=== PATIENT | female | born 1960 | race Caucasian/White ===

== ENCOUNTER 2020-08-10 17:03 | Inpatient (IN) | payer OTHER ==
[~2020-08-10] VITALS: Ht 182.9 cm; Wt 106.5 kg
--- NOTE | 2020-08-10 17:14 | NUR ---
MATTHEW REMSA FROM HOME FOR DIFFUSE BACK PAIN DESCRIBED DULL ACHING. THIS STATRED A T 5 AM THIS MORNING. THROUGHOUT THE DAY PT EXPERIENCED 2 EPISODES OF VOMITING AND FOLLOWED BY A SYNCOPAL EPISODE BY WHICH SHE WAS ASSISTED TO THE GROUND BY . PER EMS UNABLE TO OBTAIN BP ON SCENE. BP POST 1 LITER NS WAS 67/52. PT MEDICAL HX OF HTN
[2020-08-10] MEDS ORDERED: ONDANSETRON 2MG/ML, 2ML ONE (17:27)
[2020-08-10] MEDS ORDERED: PLEASE ENTER HEIGHT AND WEIGHT MC SCH (17:30)
[2020-08-10] MEDS ORDERED: ONDANSETRON 2MG/ML, 2ML IVPush ONE (17:30)
[2020-08-10] MEDS ORDERED: SODIUM CHLORIDE 0.9% 1,000ML IVBOLUS ONE ×3 (17:30→20:00)
[2020-08-10] MEDS ORDERED: FENTANYL PF 100 MCG/2ML IVPush ONE ×2 (17:30→19:30)
[2020-08-10] MEDS ORDERED: SODIUM CHLORIDE FLUSH 10ML SYR IVF ONE (17:30)
[2020-08-10 17:51] LABS: INTERNATIONAL NORMALIZED RATIO 1.05 (0.93-1.1); PROTHROMBIN TIME 10.8 Seconds (9.6-11.5)
--- NOTE | 2020-08-10 17:51 | NUR ---
LAST ORAL INTAKE OF FOOD WAS YESTERDAY NOONISH.
--- NOTE | 2020-08-10 17:52 | NUR ---
PHARMACY NOTIFIED OF LEVOPHED ORDER. CENTRAL LINE CART AT BEDSIDE. MD AWARE OF PT CONDITION.
[2020-08-10 17:54] LABS: ALBUMIN 2.8 g/dL (3.4-5.0); ANION GAP 14 mmol/L (5-15); CALCIUM 8.1 mg/dL (8.5-10.1); CHLORIDE 107 mmol/L (98-107)
[2020-08-10 17:56] LABS: MEAN CORPUSCULAR HEMOGLOBIN 33.2 pg (27.0-34.8); MEAN CORPUSCULAR HGB CONC 32.6 g/dL (32.4-35.8); MEAN PLATELET VOLUME 8.4 fL (7.4-10.4); PLATELET COUNT 309 x10^3/uL (130-400); RED BLOOD COUNT 4.97 x10^6/uL (3.82-5.3)
[2020-08-10] MEDS ORDERED: FENTANYL PF 100 MCG/2ML ONE ×2 (17:57→19:10)
[2020-08-10] MEDS ORDERED: NOREPINEPHRINE 8 MG in SODIUM CHLORIDE 0.9% 242 ML IV PRN ×2 (18:00→20:30)
[2020-08-10 18:07] LABS: ALANINE AMINOTRANSFERASE 20 U/L (12-78); ALKALINE PHOSPHATASE 80 U/L (45-117); BILIRUBIN,TOTAL 0.5 mg/dL (0.2-1.0); CREATININE 1.63 mg/dL (0.55-1.02)
[2020-08-10] MEDS ORDERED: PIPERACILLIN/TAZO/PMX 3.375GM 50 ML ONE (18:23)
[2020-08-10 18:28] LABS: MD YES
[2020-08-10] MEDS ORDERED: METRONIDAZOLE PMX 500MG/100ML 100 ML IV ONE (18:30)
[2020-08-10] MEDS ORDERED: PIPERACILLIN/TAZO/PMX 3.375GM 50 ML IV ONE (18:30)
[2020-08-10 18:31] LABS: MICROSCOPIC INDICATED
[2020-08-10 18:31] LABS: BAND#(MANUAL) 2.91 x10^3/uL; BANDS%(MANUAL) 14 % (0-7); LYMPH#(MANUAL) 1.04 x10^3/uL (1-3.4); LYMPHS% (MANUAL) 5 % (22-44); METAMYELOCYTES# (MANUAL) 0.21 x10^3/uL (0-0); METAMYELOCYTES% (MANUAL) 1 % (0-1); MONOS#(MANUAL) 0.83 x10^3/uL (0.3-2.7); MONOS% (MANUAL) 4 % (2-9); SEG#(MANUAL) 15.81 x10^3/uL (1.8-6.8); SEGS% (MANUAL) 76 % (42-75)
[2020-08-10 18:32] LABS: <PLATELET ESTIMATE> ADEQUATE; <PLT MORPHOLOGY> NORMAL PLT MORPH
[2020-08-10] MEDS ORDERED: METRONIDAZOLE PMX 500MG/100ML 100 ML ONE (18:48)
--- NOTE | 2020-08-10 18:55 | NUR ---
levophed initiated at 0.1 per protocol. unable to chart in iv spread sheet.
--- NOTE | 2020-08-10 18:58 | NUR ---
MD MADE AWARE OF LATEST BP. PER MD INITIATE LEVOPHED NOW.
--- NOTE | 2020-08-10 19:01 | NUR ---
INCREASE O2 TO 4 LPM VIA NC FOR O2 SAT OF 88 ON 2LPM
--- NOTE | 2020-08-10 19:25 | NUR ---
md at bedside to perform central line
--- NOTE | 2020-08-10 19:28 | NUR ---
levophed moved to 0.12 per md prior to fentanyl admin.
[2020-08-10] MEDS ORDERED: LIDOCAINE-MPF 2% ,5ML ONE (19:49)
[2020-08-10] MEDS ORDERED: LIDOCAINE-MPF 2%, 2ML INFIL ONE (20:00)
--- NOTE | 2020-08-10 20:12 | NUR ---
surgeon at bedside. pt consented. unable to place ng tube due to pt anatomy. aware.
--- NOTE | 2020-08-10 20:24 | NUR ---
report to mary ann davila in [place].
[2020-08-10] MEDS ORDERED: ONDANSETRON 2MG/ML, 2ML IVPush PRN (20:30)
[2020-08-10] MEDS ORDERED: PHARMACY MAY ADJ FOR RENAL FX MC PRN (20:30)
[2020-08-10] MEDS ORDERED: MIDAZOLAM 1 MG/ML, 2ML ONE (20:41)
[2020-08-10] MEDS ORDERED: FENTANYL PF 250 MCG/5ML ONE (20:41)
[2020-08-10] MEDS ORDERED: ROCURONIUM 10 MG/ML,10ML ONE (21:00)
[2020-08-10] MEDS ORDERED: DEXAMETHASONE 4 MG/ML, 1ML ONE (21:00)
[2020-08-10] MEDS ORDERED: FAMOTIDINE 20 MG/2 ML IVPush SCH (21:00)
[2020-08-10] MEDS ORDERED: PROPOFOL 100 ML IV ONE (21:50)
[2020-08-10] MEDS ORDERED: GLUCAGON 1 MG IM PRN (22:00)
[2020-08-10] MEDS ORDERED: ONDANSETRON 2MG/ML, 2ML IV PRN (22:00)
[2020-08-10] MEDS ORDERED: VANCOMYCIN PER PHARMACY MC PRN (22:00)
[2020-08-10] MEDS ORDERED: THIAMINE 200 MG in SODIUM CHLORIDE 0.9% 50 ML IV ONE (22:00)
[2020-08-10] MEDS ORDERED: VASOPRESSIN 20 UNIT in SODIUM CHLORIDE 0.9% 99 ML IV PRN (22:00)
[2020-08-10] MEDS ORDERED: DEXTROSE 4 GM TAB.CHEW PO PRN (22:00)
[2020-08-10] MEDS ORDERED: SENNA/DOCUSATE TABLET NG PRN (22:00)
[2020-08-10] MEDS ORDERED: PHARMACY MAY ADJ FOR RENAL FX MC SCH (22:00)
[2020-08-10] MEDS ORDERED: LIDOCAINE-MPF 1%, 2ML ENDO PRN (22:00)
[2020-08-10] MEDS ORDERED: DEXTROSE 50%, 50ML SYRINGE IVPush PRN (22:00)
[2020-08-10 22:28] LABS: MEAN CORPUSCULAR HEMOGLOBIN 32.8 pg (27.0-34.8); MEAN PLATELET VOLUME 7.9 fL (7.4-10.4); PLATELET COUNT 285 x10^3/uL (130-400); RED BLOOD COUNT 4.38 x10^6/uL (3.82-5.3); RED CELL DISTRIBUTION WIDTH 12.9 % (9.6-15.2)
[2020-08-10] MEDS ORDERED: PHARMACOKINETIC CONSULTATION MC ONE (22:30)
[2020-08-10] MEDS ORDERED: PHARMACOKINETIC MONITORING MC PRN (22:30)
[2020-08-10 22:37] LABS: ANION GAP 5 mmol/L (5-15); CALCIUM 6.4 mg/dL (8.5-10.1); CHLORIDE 118 mmol/L (98-107); TRIGLYCERIDES 75 mg/dL (50-200)
[2020-08-10] MEDS ORDERED: VANCOMYCIN 2,400 MG in SODIUM CHLORIDE 0.9% 500 ML IV ONE (22:45)
[2020-08-10] MEDS: PROPOFOL 100 ML IV PRN (23:01)
[2020-08-10] MEDS ORDERED: OMNIPAQUE 350 MG/ML, 100ML BOTTLE ONE (23:23)
[2020-08-10] MEDS: SODIUM CHLORIDE FLUSH 10ML SYR IVF SCH (23:31)
[2020-08-10] MEDS ORDERED: SODIUM BICARB 8.4%, 50ML SYRINGE ONE (23:43)
[2020-08-10] MEDS: FENTANYL PF 1,000 MCG in SODIUM CHLORIDE 0.9% 80 ML IV PRN (23:57)
[2020-08-10] MEDS: NOREPINEPHRINE 8 MG in SODIUM CHLORIDE 0.9% 242 ML IV PRN (23:58)
[2020-08-11] LABS: MD YES
[2020-08-11] MEDS ORDERED: SODIUM BICARB 8.4%, 50ML SYRINGE IVPush ONE
[2020-08-11 00:02] LABS: BAND#(MANUAL) 6.62 x10^3/uL; BANDS%(MANUAL) 23 % (0-7); LYMPH#(MANUAL) 2.02 x10^3/uL (1-3.4); LYMPHS% (MANUAL) 7 % (22-44); METAMYELOCYTES# (MANUAL) 0.58 x10^3/uL (0-0); METAMYELOCYTES% (MANUAL) 2 % (0-1); MONOS#(MANUAL) 1.73 x10^3/uL (0.3-2.7); MONOS% (MANUAL) 6 % (2-9); MYELOCYTES# (MANUAL) 0.29 x10^3/uL (0-0); MYELOCYTES% (MANUAL) 1 % (0-0); SEG#(MANUAL) 17.57 x10^3/uL (1.8-6.8); SEGS% (MANUAL) 61 % (42-75)
[2020-08-11 00:04] LABS: <PLATELET ESTIMATE> ADEQUATE; <PLT MORPHOLOGY> NORMAL PLT MORPH
[2020-08-11] MEDS: PIPERACILLIN/TAZO/PMX 2.25GM 50 ML IVPB SCH ×4 (02:16→19:38)
[2020-08-11 04:00] VITALS: BP 100/66
[2020-08-11] MEDS: NOREPINEPHRINE 8 MG in SODIUM CHLORIDE 0.9% 242 ML IV PRN ×4 (04:01→22:07)
[2020-08-11] MEDS ORDERED: ACETAMINOPHEN 650 MG SUPP PR PRN (04:30)
[2020-08-11 05:26] LABS: INTERNATIONAL NORMALIZED RATIO 1.04 (0.93-1.1); PROTHROMBIN TIME 10.7 Seconds (9.6-11.5)
[2020-08-11 05:30] LABS: MEAN CORPUSCULAR HEMOGLOBIN 32.7 pg (27.0-34.8); MEAN CORPUSCULAR HGB CONC 32.9 g/dL (32.4-35.8); MEAN PLATELET VOLUME 8.6 fL (7.4-10.4); PLATELET COUNT 290 x10^3/uL (130-400); RED BLOOD COUNT 4.69 x10^6/uL (3.82-5.3); RED CELL DISTRIBUTION WIDTH 13.2 % (9.6-15.2)
[2020-08-11 05:34] LABS: ALBUMIN 2.4 g/dL (3.4-5.0); ANION GAP 8 mmol/L (5-15); CALCIUM 6.9 mg/dL (8.5-10.1); CHLORIDE 115 mmol/L (98-107)
[2020-08-11 05:38] LABS: ALANINE AMINOTRANSFERASE 21 U/L (12-78); ALKALINE PHOSPHATASE 64 U/L (45-117); BILIRUBIN,TOTAL 0.6 mg/dL (0.2-1.0); CREATININE 1.48 mg/dL (0.55-1.02); TOTAL PROTEIN 5.4 g/dL (6.4-8.2)
[2020-08-11 06:30] LABS: MD YES
[2020-08-11 06:32] LABS: BAND#(MANUAL) 3.04 x10^3/uL; BANDS%(MANUAL) 9 % (0-7); LYMPH#(MANUAL) 1.35 x10^3/uL (1-3.4); LYMPHS% (MANUAL) 4 % (22-44); METAMYELOCYTES# (MANUAL) 1.01 x10^3/uL (0-0); METAMYELOCYTES% (MANUAL) 3 % (0-1); MONOS#(MANUAL) 1.35 x10^3/uL (0.3-2.7); MONOS% (MANUAL) 4 % (2-9); SEG#(MANUAL) 27.04 x10^3/uL (1.8-6.8); SEGS% (MANUAL) 80 % (42-75)
[2020-08-11 06:34] LABS: <PLATELET ESTIMATE> ADEQUATE; <PLT MORPHOLOGY> NORMAL PLT MORPH
[2020-08-11] MEDS ORDERED: LACTATED RINGERS 1,000 ML IV ONE (09:00)
[2020-08-11] MEDS: SODIUM CHLORIDE FLUSH 10ML SYR IVF SCH ×2 (09:31→22:22)
[2020-08-11] MEDS: PANTOPRAZOLE 40 MG IV IV SCH (09:31)
[2020-08-11] MEDS: FENTANYL PF 1,000 MCG in SODIUM CHLORIDE 0.9% 80 ML IV PRN ×2 (11:55→19:52)
[2020-08-11] MEDS: PROPOFOL 100 ML IV PRN (19:37)
[2020-08-12] MEDS: PIPERACILLIN/TAZO/PMX 2.25GM 50 ML IVPB SCH ×4 (01:55→19:59)
[2020-08-12] MEDS: PROPOFOL 100 ML IV PRN ×4 (03:59→22:25)
[2020-08-12 04:00] VITALS: BP 115/71
[2020-08-12] MEDS: FENTANYL PF 1,000 MCG in SODIUM CHLORIDE 0.9% 80 ML IV PRN ×3 (04:06→18:26)
[2020-08-12 04:35] LABS: MEAN CORPUSCULAR HEMOGLOBIN 33.1 pg (27.0-34.8); MEAN CORPUSCULAR HGB CONC 32.9 g/dL (32.4-35.8); MEAN PLATELET VOLUME 8.4 fL (7.4-10.4); PLATELET COUNT 246 x10^3/uL (130-400); RED BLOOD COUNT 4.01 x10^6/uL (3.82-5.3); RED CELL DISTRIBUTION WIDTH 13.1 % (9.6-15.2)
[2020-08-12 04:41] LABS: ANION GAP 3 mmol/L (5-15); CALCIUM 7.7 mg/dL (8.5-10.1); CHLORIDE 115 mmol/L (98-107); CREATININE 0.99 mg/dL (0.55-1.02)
[2020-08-12] MEDS: NOREPINEPHRINE 8 MG in SODIUM CHLORIDE 0.9% 242 ML IV PRN ×3 (05:12→21:28)
[2020-08-12 06:10] LABS: MD YES
[2020-08-12 06:11] LABS: BAND#(MANUAL) 0.22 x10^3/uL; BANDS%(MANUAL) 1 % (0-7); LYMPH#(MANUAL) 1.54 x10^3/uL (1-3.4); LYMPHS% (MANUAL) 7 % (22-44); MONOS#(MANUAL) 2.42 x10^3/uL (0.3-2.7); MONOS% (MANUAL) 11 % (2-9); SEG#(MANUAL) 17.82 x10^3/uL (1.8-6.8); SEGS% (MANUAL) 81 % (42-75)
[2020-08-12 06:12] LABS: <PLATELET ESTIMATE> ADEQUATE; <PLT MORPHOLOGY> NORMAL PLT MORPH
[2020-08-12] MEDS: PANTOPRAZOLE 40 MG IV IV SCH (08:35)
[2020-08-12] MEDS: SODIUM CHLORIDE FLUSH 10ML SYR IVF SCH ×2 (08:35→20:00)
[2020-08-12] MEDS: VANCOMYCIN 2,000 MG in SODIUM CHLORIDE 0.9% 500 ML IV SCH (09:44)
[2020-08-13] MEDS: PIPERACILLIN/TAZO/PMX 2.25GM 50 ML IVPB SCH (02:38)
[2020-08-13] MEDS: FENTANYL PF 1,000 MCG in SODIUM CHLORIDE 0.9% 80 ML IV PRN ×2 (03:43→12:25)
[2020-08-13 03:45] LABS: BASOPHILS % (AUTO) 0 % (0-1); EOSINOPHILS % (AUTO) 1 % (1-7); LYMPHOCYTES % (AUTO) 14 % (22-44); MEAN CORPUSCULAR HEMOGLOBIN 33.8 pg (27.0-34.8); MEAN CORPUSCULAR HGB CONC 33.8 g/dL (32.4-35.8); MEAN PLATELET VOLUME 7.8 fL (7.4-10.4); MONOCYTES % (AUTO) 8 % (2-9); NEUTROPHILS % (AUTO) 77 % (42-75); PLATELET COUNT 208 x10^3/uL (130-400); RED BLOOD COUNT 3.31 x10^6/uL (3.82-5.3); RED CELL DISTRIBUTION WIDTH 13.3 % (9.6-15.2)
[2020-08-13 03:50] LABS: MD NO
[2020-08-13 03:54] LABS: ANION GAP 3 mmol/L (5-15); CALCIUM 8.1 mg/dL (8.5-10.1); CHLORIDE 115 mmol/L (98-107); CREATININE 0.55 mg/dL (0.55-1.02)
[2020-08-13 03:55] LABS: TRIGLYCERIDES 95 mg/dL (50-200)
[2020-08-13 04:00] VITALS: BP 98/52
[2020-08-13] MEDS: PROPOFOL 100 ML IV PRN ×2 (05:37→15:16)
[2020-08-13] MEDS ORDERED: POTASSIUM PHOSPHATE 22 MEQ in SODIUM CHLORIDE 0.9% 500 ML IV ONE ×2 (06:30→10:00)
[2020-08-13] MEDS: SODIUM CHLORIDE FLUSH 10ML SYR IVF SCH ×2 (08:22→20:51)
[2020-08-13] MEDS: PANTOPRAZOLE 40 MG IV IV SCH (08:22)
[2020-08-13] MEDS: PIPERACILLIN/TAZO/PMX 3.375GM 50 ML IV SCH ×3 (08:48→20:49)
[2020-08-13] MEDS: VANCOMYCIN 2,000 MG in SODIUM CHLORIDE 0.9% 500 ML IV SCH (08:48)
[2020-08-13] MEDS ORDERED: ROCURONIUM 10MG/ML,5ML ONE (16:43)
[2020-08-13] MEDS ORDERED: MIDAZOLAM 1 MG/ML, 2ML ONE (16:43)
[2020-08-13] MEDS ORDERED: FENTANYL PF 250 MCG/5ML ONE (17:33)
[2020-08-13] MEDS ORDERED: ONDANSETRON 2MG/ML, 2ML ONE (17:38)
[2020-08-13] MEDS ORDERED: SUGAMMADEX 200 MG/2 ML IVPush ONE (17:38)
[2020-08-13] MEDS ORDERED: KETOROLAC 30 MG/1 ML ONE (17:39)
[2020-08-13] MEDS ORDERED: DEXAMETHASONE 4 MG/ML, 1ML ONE ×2 (17:39)
[2020-08-13] MEDS ORDERED: PROPOFOL 10 MG/ML, 20ML ONE (17:39)
[2020-08-13] MEDS ORDERED: MEPERIDINE/PF 25MG/0.5ML IVPush PRN (18:00)
[2020-08-13] MEDS ORDERED: LABETALOL 5MG/ML, 20ML IV PRN (18:00)
[2020-08-13] MEDS ORDERED: EPHEDRINE 50 MG/ML, 1ML IVPush PRN (18:00)
[2020-08-13] MEDS ORDERED: PROMETHAZINE 25 MG/ML, 1ML IVPush PRN (18:00)
[2020-08-13] MEDS ORDERED: HYDROmorphone 1 MG/ML, 1ML INJ IVPush PRN (18:00)
[2020-08-13] MEDS ORDERED: OXYcodone 5 MG/5 ML ORAL.SOL UDC PO PRN (18:00)
[2020-08-13] MEDS ORDERED: ONDANSETRON 2MG/ML, 2ML IVPush PRN (18:00)
[2020-08-13] MEDS ORDERED: hydrALAzine 20 MG/ML, 1ML IV PRN (18:00)
[2020-08-13] MEDS ORDERED: FENTANYL PF 100 MCG/2ML IV PRN (18:00)
[2020-08-13] MEDS ORDERED: ACETAMINOPHEN 325 MG TABLET PO PRN (18:00)
[2020-08-13] MEDS: morphine SULFATE 10 MG/ML, 1ML IVPush PRN (20:54)
[2020-08-14] MEDS: PIPERACILLIN/TAZO/PMX 3.375GM 50 ML IV SCH ×4 (03:19→21:17)
[2020-08-14 04:00] VITALS: BP 100/58
[2020-08-14 05:56] LABS: BASOPHILS % (AUTO) 0 % (0-1); EOSINOPHILS % (AUTO) 0 % (1-7); LYMPHOCYTES % (AUTO) 6 % (22-44); MEAN CORPUSCULAR HEMOGLOBIN 33.4 pg (27.0-34.8); MEAN CORPUSCULAR HGB CONC 33.2 g/dL (32.4-35.8); MEAN PLATELET VOLUME 7.8 fL (7.4-10.4); MONOCYTES % (AUTO) 5 % (2-9); NEUTROPHILS % (AUTO) 89 % (42-75); PLATELET COUNT 194 x10^3/uL (130-400); RED BLOOD COUNT 2.86 x10^6/uL (3.82-5.3); RED CELL DISTRIBUTION WIDTH 12.9 % (9.6-15.2)
[2020-08-14 06:09] LABS: ANION GAP 7 mmol/L (5-15); CALCIUM 8.1 mg/dL (8.5-10.1); CHLORIDE 115 mmol/L (98-107)
[2020-08-14 06:12] LABS: CREATININE 0.64 mg/dL (0.55-1.02)
[2020-08-14 06:24] LABS: MD NO
[2020-08-14] MEDS: PANTOPRAZOLE 40 MG IV IV SCH (08:36)
[2020-08-14] MEDS: morphine SULFATE 10 MG/ML, 1ML IVPush PRN (08:38)
[2020-08-14] MEDS: D5%-0.45% NACL 1,000 ML IV SCH ×2 (08:38→21:20)
[2020-08-14] MEDS: SODIUM CHLORIDE FLUSH 10ML SYR IVF SCH ×2 (08:38→21:00)
[2020-08-14 08:50] VITALS: BP 120/74
[2020-08-14 11:40] VITALS: BP 103/53
[2020-08-14] MEDS: ACETAMINOPHEN 325 MG TABLET PO PRN ×2 (14:27→23:25)
[2020-08-14 16:46] VITALS: BP 105/60
[2020-08-14 21:33] VITALS: BP 106/67
[2020-08-15 00:09] VITALS: BP 112/73
[2020-08-15 01:37] VITALS: BP 144/77
[2020-08-15] MEDS: morphine SULFATE 10 MG/ML, 1ML IVPush PRN (01:55)
[2020-08-15] MEDS: PIPERACILLIN/TAZO/PMX 3.375GM 50 ML IV SCH ×4 (02:53→20:27)
[2020-08-15 05:17] LABS: ANION GAP 6 mmol/L (5-15); CALCIUM 7.8 mg/dL (8.5-10.1); CHLORIDE 112 mmol/L (98-107); CREATININE 0.59 mg/dL (0.55-1.02)
[2020-08-15 05:23] LABS: BASOPHILS % (AUTO) 1 % (0-1); EOSINOPHILS % (AUTO) 1 % (1-7); LYMPHOCYTES % (AUTO) 17 % (22-44); MEAN CORPUSCULAR HEMOGLOBIN 33.5 pg (27.0-34.8); MEAN CORPUSCULAR HGB CONC 33.8 g/dL (32.4-35.8); MEAN PLATELET VOLUME 7.7 fL (7.4-10.4); MONOCYTES % (AUTO) 11 % (2-9); NEUTROPHILS % (AUTO) 71 % (42-75); PLATELET COUNT 224 x10^3/uL (130-400); RED BLOOD COUNT 2.75 x10^6/uL (3.82-5.3); RED CELL DISTRIBUTION WIDTH 13.2 % (9.6-15.2)
[2020-08-15 05:34] LABS: MD NO
[2020-08-15 07:54] VITALS: BP 109/72
[2020-08-15] MEDS: PANTOPRAZOLE 40 MG IV IV SCH (09:02)
[2020-08-15] MEDS: SODIUM CHLORIDE FLUSH 10ML SYR IVF SCH ×2 (09:03→19:53)
[2020-08-15] MEDS: D5%-0.45% NACL 1,000 ML IV SCH (11:57)
[2020-08-15 13:29] VITALS: BP 130/81
[2020-08-15] MEDS: ACETAMINOPHEN 325 MG TABLET PO PRN ×2 (15:18→19:52)
[2020-08-15 19:57] VITALS: BP 118/76
[2020-08-16] MEDS: D5%-0.45% NACL 1,000 ML IV SCH (00:05)
[2020-08-16 01:25] VITALS: BP 119/75
[2020-08-16] MEDS: PIPERACILLIN/TAZO/PMX 3.375GM 50 ML IV SCH ×2 (02:40→07:58)
[2020-08-16 05:06] LABS: BASOPHILS % (AUTO) 0 % (0-1); EOSINOPHILS % (AUTO) 2 % (1-7); LYMPHOCYTES % (AUTO) 15 % (22-44); MEAN CORPUSCULAR HEMOGLOBIN 33.4 pg (27.0-34.8); MEAN CORPUSCULAR HGB CONC 33.2 g/dL (32.4-35.8); MEAN PLATELET VOLUME 7.6 fL (7.4-10.4); MONOCYTES % (AUTO) 12 % (2-9); NEUTROPHILS % (AUTO) 71 % (42-75); PLATELET COUNT 254 x10^3/uL (130-400); RED BLOOD COUNT 2.76 x10^6/uL (3.82-5.3)
[2020-08-16 05:11] LABS: ANION GAP 6 mmol/L (5-15); CHLORIDE 111 mmol/L (98-107); CREATININE 0.52 mg/dL (0.55-1.02)
[2020-08-16 05:16] LABS: MD NO
[2020-08-16] MEDS ORDERED: PANTOPRAZOLE 40MG TABLET PO SCH (06:00)
[2020-08-16 06:43] VITALS: BP 125/80
[2020-08-16] MEDS: SODIUM CHLORIDE FLUSH 10ML SYR IVF SCH (07:58)
[2020-08-16] MEDS ORDERED: POTASSIUM CHLORIDE 20 MEQ TAB.ER.PRT PO ONE (08:00)
[2020-08-16] MEDS: ACETAMINOPHEN 325 MG TABLET PO PRN (08:06)
[2020-08-16] MEDS ORDERED: CIPR500T87 PO (10:24)
[2020-08-16] MEDS ORDERED: METR500T PO (10:24)
[2020-08-16] MEDS ORDERED: LISI5TAB7 PO (10:24)
[2020-08-16 12:20] VITALS: BP 117/77
== END 2020-08-16 13:40 | disposition home or self-care (01) | DRG 853 ==
LOC: ED 19:54 → EDIP 20:11 → CCU 21:46 → 3N 08-14 17:47
PROVIDERS: ADMIT Family Medicine; ATTEND Internal Medicine
PROC: 0DB80ZZ Excision of Small Intestine, Open Approach (ICD-10-PCS; 2020-08-10)
PROC: 0BH17EZ Insertion of Endotracheal Airway into Trachea, Via Natural or Artificial Opening (ICD-10-PCS; 2020-08-10)
PROC: 0T9B70Z Drainage of Bladder with Drainage Device, Via Natural or Artificial Opening (ICD-10-PCS; 2020-08-10)
PROC: 02HV33Z Insertion of Infusion Device into Superior Vena Cava, Percutaneous Approach (ICD-10-PCS; 2020-08-10)
PROC: B548ZZA Ultrasonography of Superior Vena Cava, Guidance (ICD-10-PCS; 2020-08-10)
PROC: 5A1945Z Respiratory Ventilation, 24-96 Consecutive Hours (ICD-10-PCS; principal; 2020-08-10 17:45)
PROC: 0D180Z8 Bypass Small Intestine to Small Intestine, Open Approach (ICD-10-PCS; 2020-08-13)
DX: A41.9 Sepsis, unspecified organism (principal); J96.01 Acute respiratory failure with hypoxia; K55.059 Acute (reversible) ischemia of intestine, part and extent unspecified; K55.069 Acute infarction of intestine, part and extent unspecified; N17.0 Acute kidney failure with tubular necrosis; R65.21 Severe sepsis with septic shock; E87.0 Hyperosmolality and hypernatremia; G93.40 Encephalopathy, unspecified; I50.30 Unspecified diastolic (congestive) heart failure; K56.699 Other intestinal obstruction unspecified as to partial versus complete obstruction; Z99.11 Dependence on respirator [ventilator] status; Z20.828 Contact with and (suspected) exposure to other viral communicable diseases; D72.823 Leukemoid reaction; E87.6 Hypokalemia; F17.210 Nicotine dependence, cigarettes, uncomplicated; I11.0 Hypertensive heart disease with heart failure; K46.9 Unspecified abdominal hernia without obstruction or gangrene; Z90.49 Acquired absence of other specified parts of digestive tract
CPT/HCPCS: 36415; 36600; 96361; 96374; 96375; 99291; C8929; 71045; 74177; 80048; 80053; 80202; 81001; 82330; 82803; 82947; 83036; 83605; 83690; 83735; 84100; 84132; 84295; 84443; 84478; 85014; 85025; 85610; 85730; 87040; 87070; 87077; 87081; 87086; 87186; 87205; 87635; 88307; 93005; 94003; G0378; J1100; J1885; J2250; J2405; J2543; J2704; J3010; J3370; J3411; Q9957; Q9967; C9113; J2270; J7030; J7040; J7050; J7120

== ENCOUNTER 2021-04-09 05:00 | Emergency (ER) | payer OTHER ==
[~2021-04-09] VITALS: Ht 182.9 cm; Wt 90.0 kg
[~2021-04-09 05:00] MED LIST: CIPR500T87 PO; LISI5TAB7 PO; METR500T PO
[2021-04-09] MEDS ORDERED: DIPHENHYDRAMINE 50 MG/ML, 1ML ONE (05:23)
[2021-04-09] MEDS ORDERED: methylPREDNISolone SOD SUCC 125 MG/2 ML ONE (05:23)
[2021-04-09] MEDS ORDERED: FAMOTIDINE 20 MG/2 ML ONE (05:23)
[2021-04-09] MEDS ORDERED: SODIUM CHLORIDE FLUSH 10ML SYR IVF ONE (05:30)
[2021-04-09] MEDS ORDERED: FAMOTIDINE 20 MG/2 ML IVPush ONE (05:30)
[2021-04-09] MEDS ORDERED: DIPHENHYDRAMINE 50 MG/ML, 1ML IVPush ONE (05:30)
[2021-04-09] MEDS ORDERED: methylPREDNISolone SOD SUCC 125 MG/2 ML IVPush ONE (05:30)
--- NOTE | 2021-04-09 06:52 | NUR ---
Report to Ju HILLMAN
--- NOTE | 2021-04-09 06:53 | NUR ---
PT REPORT FROM RAFY MORALES. PT CARE TO BE ASSUMED.
--- NOTE | 2021-04-09 06:54 | NUR ---
Pt ambulatory with steady gait to restroom
[2021-04-09 07:10] VITALS: BP 142/87
--- NOTE | 2021-04-09 07:10 | NUR ---
RESTING ON [place], WATCHING TV. STATES SHE'S SLEEPY DUE TO "ALL OF THE BENADRYL THEY GAVE ME, BUT I'M READY TO GO HOME."
[2021-04-09] MEDS ORDERED: LISI1TAB39 PO (07:13)
--- NOTE | 2021-04-09 07:47 | NUR ---
20G IV DC'D FROM RT WRIST W/ TIP INTACT. IV NOT CHARTED BY PRIOR STAFF.
== END 2021-04-09 08:21 | disposition home or self-care (01) ==
LOC: ED 05:30
DX: T78.3XXA Angioneurotic edema, initial encounter (principal); R13.10 Dysphagia, unspecified; F17.200 Nicotine dependence, unspecified, uncomplicated; I10 Essential (primary) hypertension
CPT/HCPCS: 96374; 96375; 99284; J1200; J2930

== ENCOUNTER 2021-05-08 12:27 | Outpatient (CLI) | payer OTHER ==
[~2021-05-08 12:27] MED LIST changes: +LISI1TAB39 PO
[2021-05-08] MEDS ORDERED: OMNIPAQUE 350 MG/ML, 100ML BOTTLE ONE (14:21)
== END 2021-05-08 23:59 | disposition home or self-care (01) ==
LOC: CFH 12:27
PROVIDERS: ATTEND Surgery
DX: D18.09 Hemangioma of other sites (principal); K80.20 Calculus of gallbladder without cholecystitis without obstruction; R91.1 Solitary pulmonary nodule; M51.37 Other intervertebral disc degeneration, lumbosacral region; K43.9 Ventral hernia without obstruction or gangrene
CPT/HCPCS: 74177; 82565; Q9967